=== PATIENT | female | born 1990 | race Caucasian/White ===

== ENCOUNTER 2025-06-29 06:29 | Observation (INO) | payer OTHER ==
[2025-06-10 16:38] LABS: MEAN PLATELET VOLUME 7.6 FL (7.4-10.4); PRE OP HEMATOCRIT 35.2 % (35.0-45.0); PRE OP HEMOGLOBIN 11.7 g/dL (12.0-16.0); PRE OP PLATELET COUNT 226 X10'3 (140-440); PRE OP WHITE BLOOD COUNT 8.3 10'3 (4.8-10.8); RED CELL DISTRIBUTION WIDTH 15.3 % (11.5-14.5)
[2025-06-10 16:50] LABS: HCG SERUM QL NEGATIVE
[2025-06-10 16:52] LABS: CREATININE 0.62 MG/DL (0.40-0.90); PRE OP ALT 18 U/L (30-65); PRE OP ANION GAP 8 (8-16); PRE OP AST 23 U/L (10-37); PRE OP BILIRUB, TOTAL 0.4 MG/DL (0.0-1.0); PRE OP GLUCOSE 87 MG/DL (70-104); PRE OP POTASSIUM 4.2 MMOL/L (3.4-5.1); PRE OP SODIUM 138 MMOL/L (135-145); TOTAL CARBON DIOXIDE 28.3 MMOL/L (24-32); eGFR > 90 ML/MIN
[2025-06-29] VITALS (20 sets, daily range): BP systolic 105–140; BP diastolic 60–103; PULSE 91–106; RESP 13–16; TEMP 97.8–98.4; O2SAT 96–100
[~2025-06-29] VITALS: Ht 175.3 cm; Wt 84.0 kg
[2025-06-29] MEDS: ceFAZolin 2gm/dext,iso 50mL 50 ML IV ONE (05:30)
[~2025-06-29 06:29] MED LIST: SUMA100T16 PO
[2025-06-29] MEDS ORDERED: methylene blue (5mg/ml) 50mg/10ml ampul IV ONE (06:46)
[2025-06-29] MEDS ORDERED: BUPIVACAINE liposomal/PF 13.3 MG/ML 10mL vial IM ONE ×2 (06:46→08:11)
[2025-06-29] MEDS ORDERED: BUPIVAcaine/PF 2.5mg/ml (0.25%) 10ml vial ONE ×2 (06:46→07:12)
[2025-06-29] MEDS: ringers solution, lacted 1,000 ML IV SCH ×3 (06:58→12:00)
[2025-06-29 07:41] LABS: MEAN PLATELET VOLUME 7.6 FL (7.4-10.4); PRE OP HEMATOCRIT 35.6 % (35.0-45.0); PRE OP HEMOGLOBIN 12.0 g/dL (12.0-16.0); PRE OP PLATELET COUNT 227 X10'3 (140-440); PRE OP WHITE BLOOD COUNT 4.7 10'3 (4.8-10.8); RED CELL DISTRIBUTION WIDTH 15.0 % (11.5-14.5)
[2025-06-29 08:03] LABS: CREATININE 0.64 MG/DL (0.40-0.90); PRE OP ALT 19 U/L (30-65); PRE OP ANION GAP 10 (8-16); PRE OP AST 28 U/L (10-37); PRE OP BILIRUB, TOTAL 0.4 MG/DL (0.0-1.0); PRE OP GLUCOSE 102 MG/DL (70-104); PRE OP POTASSIUM 3.6 MMOL/L (3.4-5.1); PRE OP SODIUM 142 MMOL/L (135-145); TOTAL CARBON DIOXIDE 28.6 MMOL/L (24-32); eCRCL 129 ML/MIN; eGFR > 90 ML/MIN
[2025-06-29] MEDS ORDERED: BUPIVAcaine 0.5% inj/PF 30 ML ONE (08:10)
[2025-06-29] MEDS ORDERED: fentaNYL/PF 50MCG/1 ML 2ML syringe ONE ×2 (08:14→08:54)
[2025-06-29] MEDS ORDERED: midazolam 1 mg/ML 2ml injection ONE (08:15)
[2025-06-29] MEDS ORDERED: LIDOcaine 2% (20mg/ml) 5ml vial ONE (08:16)
[2025-06-29] MEDS ORDERED: propofol inj 20 ML IV ONE (08:16)
[2025-06-29] MEDS ORDERED: ondansetron/PF 4mg/2ml inj ONE (08:42)
[2025-06-29] MEDS ORDERED: dexamethasone sod phosphate 4mg/ml inj. ONE (08:42)
[2025-06-29] MEDS ORDERED: acetaminophen 1000 MG/100ml vial IV ONE (08:54)
[2025-06-29] MEDS ORDERED: ketorolac trometh 30MG/ML vial 30 MG/ML VIAL ONE (08:59)
[2025-06-29] MEDS: methylene blue (5mg/ml) 50mg/10ml ampul IV ONE (09:06)
[2025-06-29] MEDS: BUPIVAcaine/PF 2.5mg/ml (0.25%) 10ml vial IJ ONE (09:19)
[2025-06-29] MEDS ORDERED: ondansetron/PF 4mg/2ml inj IV PRN ×2 (09:20→12:00)
[2025-06-29] MEDS ORDERED: fentaNYL/PF 50MCG/1 ML 2ML syringe IV PRN (09:20)
[2025-06-29] MEDS ORDERED: labetalol 20mg/4ml (5mg/ml) syringe IV PRN (09:20)
--- NOTE | 2025-06-29 09:29 | ANESTHESIA RECORDS ---
Nerve Block Providers to CC CC: FIDELINA DUGAN DO ~ Diagnosis: Nerve Block requested by: FIDELINA DUGAN DO Neuraxial/Peripheral Nerve Block requested for Post-operative analgesia by Physician above DIAGNOSIS: Post-operative pain. (Body Area) Shoulder: [ ] Arm: [ ] Hand: [ ] Hip: [ ] Knee: [ ] Ankle: [ ] Foot: [ ] Leg: [ ] Abdomen: [ ] Other: [____Bil Breasts ] Post-operative pain expected to be/is inadequately managed by oral or IV medicines. Regional anesthetic expected to facilitate rehabilitation and/or discharge from facility. Other:[ _] Procedure Performed: Other: Pardeep PEC I,II blocks Time out Done?: Yes Time of Time out: 08:09 Procedure Details: PROCEDURE DETAILS: Risks, benefits and alternatives explained Informed consent obtained, and patient wishes to proceed Conscious sedation with indicated monitors Patient positioned, pertinent anatomy defined, sterile technique used Needle used: [ ] 3 1/8 inch Stimuplex Ultra 22ga [ ] 4 inch Stimuplex Ultra 20ga [ X] 6 inch Stimuplex Ultra 20ga [ ] 6 inch, Quikbloc over the needle catheter set 20ga [ ] 4 inch Quikbloc over the needle catheter set 20ga [ ]Other: [ ] Loss of twitch @ [ ]mA [ X] Single Injection [ ] Catheter Ultrasound Guidance Used: [ X] Yes [ ] No Attempts:[_1,1,1,1 ] Medicines injected: [ ]Clonidine Amt:[ ] [ ]Dexamethasone Amt:[ ] [ ]Ropivacaine Amt:[ ] [ X ]Bupivacaine Amt:[0.5% 30 c.c ] [ ]Lidocaine Amt:[ ] [ X]Exparel 1.33%:[___20 c.c ] [ ]Epinephrine Amt[ ] [ ]Other: [ ] Intermittent aspiration during local anesthetic administration No symptoms of intraneural or intravenous injection Patient tolerated procedure well Comments Both sides of breast ,chest wall examination with ultrasound and identification sub clavian vessels,identification of 2,3,4 rib shadows, Pectoralis major, Minor interphases. Needle is placed near 4th rib and after negative aspiration a mix of Exparel+0.5% bupevacaine on each side 15 c.c. spread is noted, needle is withdrawn in between pectroralis major/minor fascial plane and 10 c.c local mix is injected on each side. spread is noted and ultrasound images captured and documented. LULI ROJAS MD Jun 29, 2025 09:29
[2025-06-29] MEDS: fentaNYL/PF 50MCG/1 ML 2ML syringe IV PRN (11:38)
[2025-06-29] MEDS ORDERED: morphine 4 MG/ML inj SYRINge IV PRN (12:00)
[2025-06-29] MEDS: morphine 4 MG/ML inj SYRINge IV PRN (12:11)
--- NOTE | 2025-06-29 12:26 | OPERATIVE REPORT ---
Operative Report Providers to CC: FIDELINA DUGAN P DO ~ Date of Procedure: Jun 29, 2025 Pre-Operative Diagnosis: Left breast cancer BRCA2 positive Post-Operative Diagnosis SAME as PRE-Op Procedure Performed Bilateral skin sparing mastectomy and left axillary sentinel lymph node biopsy Surgeon: Dr. Fidelina Dugan Major Sales Associate Helen Brown PA-C Anesthesiologist: Davidson Giraldo Type of Anesthesia: General Findings: Three left axillary sentinel lymph nodes Complications None Prosthetics\Implants used: None Estimated Blood Loss: Less than 30 mL Specimen Removed: 1. Right breast skin sparing mastectomy 2. left breast skin sparing mastectomy 3. Left axillary sentinel lymph node 1-1100 count (hot only) 4. Left axillary sentinel lymph node 2-100 count (hot only) 5. Left axillary sentinel lymph node 3- 1699 count (hot and blue) Description of Procedure: Camelia is a 34-year-old female who was diagnosed with left breast invasive ductal carcinoma in his also BRCA two positive. She was seen and evaluated in the office. We discussed the diagnosis left breast cancer and BRCA positive genetic mutation. Based on our conversation and extensive workup. She decided to move forward with skin sparing bilateral mastectomy and left axillary sentinel node biopsy. She will have delayed implant reconstruction at a later date. I explained the surgical procedure to her the risks and benefits and alternatives to surgery and the potential complications. She had the nuclear medicine injection of the left breast yesterday. She presented to the preoperative suite this morning where an IV was administered SCDs to lower extremities and IV antibiotics at the bedside which was administered prior to the cut of surgery. The left shoulder was marked with my initials indicating that I would be performing axillary surgery. She was also evaluated by the anesthesiologist. She was taken to the OR and placed on the table in the supine position with the arms extended. General anesthesia was administered with an LMA. Also bilateral pecs one and two blocks were administered by the anesthesiologist. I scanned the left breast and axilla with the Joe node gamma probe to identify hot spots. They were identified at both sites. 3 mL of methylene blue dye was injected at the 3 o'clock position subareolar massaged for 4 minutes. The markings were made on both breast as proposed markings for the incision. The patient was prepped and draped in a sterile fashion a time-out was performed and agreed upon. I started with the right breast. An elliptical incision was made around the nipple-areolar complex with a 10 blade. I further dissected through the deep dermal layer with the cutting on the cautery. Hemostasis was achieved with Bovie electrocautery. I raised the superior flap with cat claw retractors. I dissected in the subcutaneous plane down to the base of the clavicle down to the chest wall muscle and also medial and laterally. Once the superior flap was created. I dissected the inferior flap in the same fashion. I turned my attention to removing the breast and the fascia off the chest wall. I dissected the breast and fascia off the chest wall in the superior to inferior and medial and lateral directions. Once the breast mound was removed from the cavity was oriented with short stitch superior and long suture lateral. The specimen was placed off the field in formalin. Hemostasis was achieved with Bovie electrocautery the cavity was copiously irrigated. 10 mL of Vistaseal was sprayed in the cavity to assist with hemostasis during surgery and postoperatively. A seven Maltese TINY drain was placed in the right lower outer quadrant. I made a small miguel in the skin with a 15 blade and used a tonsil c lamp to pull it through. It was secured with 3-0 nylon suture. The skin was closed in two layers. I closed the deep dermal layer with 3-0 Vicryl interrupted sutures and INSORB stapling device. The skin was closed with a Stratafix 3-0 Monocryl suture. I turned my attention to the contralateral breast. I made elliptical incision was made around the nipple-areolar complex with a 10 blade in the left breast. I further dissected through the deep dermal layer with the cutting on the cautery. Hemostasis was achieved with Bovie electrocautery. I raised the superior flap with cat claw retractors. I dissected in the subcutaneous plane down to the base of the clavicle down to the chest wall muscle and also medially and laterally. Once the superior flap was c reated, I dissected the inferior flap in the same fashion. I excised the breast and the fascia off the chest wall. I dissected the breast and fascia off the chest wall in the superior to inferior and medial and lateral directions. The breast mound was removed from the cavity was oriented with short stitch superior and long suture lateral. The specimen was placed off the field in formalin. Hemostasis was achieved with Bovie electrocautery the cavity was copiously irrigated. 10 mL of Vistaseal was sprayed in the cavity to assist with hemostasis during surgery and postoperatively. I turned my attention to the left axillary sentinel lymph node biopsy. I scanned the axillary fascia with the gamma probe. A hot signal was detected. I made the incision with the cautery. And dissected into the axillary space. I used a Park retractors for visualization. A hot lymph node was identified and it was stabilized with a tonsil clamp. I excised this lymph node which was hot only with the LigaSure. It was removed off the field and had a count of 1100. The 2nd lymph node was identified deep to that was a smaller lymph node that was also hot only and had a count of 100. It was excised in the same fashion. The 3rd lymph node that was identified which was more laterally was completely excised in the same fashion without any injury to the neurovascular structures. It had a count of 1699. This lymph node was hot and blue. Hemostasis was achieved with Bovie electrocautery the cavity was irrigated in addition to the breast cavity which was irrigated. Both cavities were sprayed with 10 mL of Vistaseal to assist with hemostasis. The axillary fascia was approximated with 3-0 Vicryl interrupted sutures. A seven Maltese TINY drain was placed in the right lower outer quadrant. The skin was punctured with a 15 blade and used a tonsil clamp to pull it through. It was secured with 3-0 nylon suture. The skin was closed in two layers. I closed the deep dermal layer with 3-0 Vicryl interrupted sutures and INSORB stapling device. The skin was closed with a Stratafix 3-0 Monocryl suture. I turned my attention to the contralateral breast. Counts repoted as correct: Yes FIDELINA DUGAN DO Jun 29, 2025 12:26
[2025-06-29] MEDS: HYDROcodone/acetaminophen 5mg/325mg tablet PO PRN (13:30)
[2025-06-29] MEDS: ceFAZolin/D5W- 1GM premix 50 ML IV SCH (17:36)
[2025-06-30 02:00] VITALS: BP 116/79; PULSE 88; RESP 16; TEMP 98.4; O2SAT 99
[2025-06-30 05:00] VITALS: BP 109/72; PULSE 83; RESP 18; TEMP 97.8; O2SAT 100
[2025-06-30 08:19] VITALS: RESP 16; O2SAT 99
--- NOTE | 2025-06-30 09:15 | PROGRESS NOTE ---
Progress Note Dictate Providers to CC CC: FIDELINA DUGAN DO ~ Central Line/PICC still needed: N\A Antibiotic Ordered?: Yes If Yes, Indications: Surgical prophylaxis If Yes, Anticipated Duration: Two postop doses times q.8 hours Subjective Subjective Pain controlled with medication. Patient is tolerating her diet ambulating and using her incentive spirometer Objective Vitals Vital Signs Date Time Temp Pulse Resp B/P (MAP) Pulse Ox O2 Delivery O2 Flow Rate FiO2 06/30/25 08:19 16 99 Room Air 06/30/25 05:00 97.8 83 109/72 (84) 06/29/25 12:20 0.0 Lab Results: 06/29/25 0715 06/29/25 0715 Objective Alert and oriented x3 no acute distress HEENT: Normocephalic atraumatic Chest: Yung wrapped, no visible swelling or drainage. TINY drains are adequate and serosanguineous. Right TINY 50 mL left TINY 40 mL Extremities: Upper extremities without swelling, lower extremities no cyanosis clubbing or edema Counseling Services Smoking & Tobacco Cessation: 3-10 Minutes (We discussed smoking cessation in the office and patient got down to 0 cigarettes in the last two weeks) Problem\Assessment\Plan Problems/Diagnosis: (1) BRCA2 genetic carrier (2) Breast cancer in female Assessment & Plan: Postop day #1. Status post bilateral skin sparing mastectomy and left axillary sentinel lymph node biopsy -left breast cancer stage II -BRCA 2 gene carrier -vital signs were stable and TINY drains are adequate pain is controlled -discharged home today -prior to discharge ambulate, teach drain care -patient has been prescribed antibiotics and pain medication for home -follow up with doctor Dugan for a postoperative appointment in two weeks and Dr. Dugan will call her in to remove the TINY drains once output is adequate -notify doctor Dugan any issues or concerns Problem Qualifiers (1) Breast cancer in female: Qualified Codes: C50.412 - Malignant neoplasm of upper-outer quadrant of left female breast; Z17.0 - Estrogen receptor positive status [ER+] FIDELINA DUGAN DO Jun 30, 2025 09:15
--- NOTE | 2025-06-30 09:20 | DISCHARGE SUMMARY ---
Discharge Summary Providers to CC CC: FIDELINA DUGAN DO ~ Discharge Summary Admission Diagnosis: Left breast cancer BRCA2 positive Hospital Course DATE OF ADMISSION: 06/29/2025 DATE OF DISCHARGE: 06/30/2025 Discharge Diagnosis\Comment: Left breast cancer BRCA two positive Operations\Procedures: bilateral skin sparing mastectomy and left axillary sentinel lymph node biopsy Consultants: None Complications: None Condition on DC: Stable Discharge Summary: Camelia is a 34-year-old female who was diagnosed with left breast cancer and BRCA2 positive. She had consented for surgery. She discussed her options in the office and consented to bilateral in sparing mastectomy and left axillary sentinel lymph node biopsy. She had a nuclear medicine injection the day before in the left side in preparation for the sentinel lymph node biopsy. In the past unit the day of surgery she was seen by myself and the anesthesiologist. She had an IV placed SCDs to lower extremities and antibiotics which were administered prior to the cut of surgery. She had a pecs one and two block in surgery after general anesthesia was administered. The surgery had no complications. Vistaseal was sprayed in the cavity to assist with hemostasis intraoperatively and postoperatively. She had an uneventful course in recovery. She had an uneventful course overnight pain was controlled patient ambulated and tolerated her diet. Postop day 1. She received two prophylactic doses of antibiotics. She has ambulated, used incentive spirometer, pain is controlled with medication. She has adequate TINY drain output which is serosanguineous. She will be discharged home today and follow up in the office as an outpatient. Has been prescribed pain medication and antibiotics. *Problems/Diagnosis: (1) BRCA2 genetic carrier (2) Breast cancer in female Assessment & Plan: Postop day #1. Status post bilateral skin sparing mastectomy and left axillary sentinel lymph node biopsy -left breast cancer stage II -BRCA 2 gene carrier -vital signs were stable and TINY drains are adequate pain is controlled -discharged home today -prior to discharge ambulate, teach drain care -patient has been prescribed antibiotics and pain medication for home -follow up with doctor Dugan for a postoperative appointment in two weeks and Dr. Dugan will call her in to remove the TINY drains once output is adequate -notify doctor Dugan any issues or concerns Total Time Spent on D/C: > 30 Minutes Problem Qualifiers (1) Breast cancer in female: Qualified Codes: C50.412 - Malignant neoplasm of upper-outer quadrant of left female breast; Z17.0 - Estrogen receptor positive status [ER+] FIDELINA DUGAN DO Jun 30, 2025 09:20
--- NOTE | 2025-07-01 12:54 | PATHOLOGY REPORT ---
[facility] [address] [place] [address] SURGICAL PATHOLOGY REPORT CaseNumber: [id number] Surgeon:Valentine Antunez P.A.-C CLINICAL INFORMATION CLINICAL INFORMATION: The patient has not had neoadjuvant chemotherapy. DIAGNOSIS DIAGNOSIS: A.BREAST, RIGHT; MASTECTOMY - BENIGN BREAST, SKIN, AND NIPPLE. DIAGNOSIS: B.BREAST, LEFT; MASTECTOMY - INVASIVE DUCTAL CARCINOMA, JUDD GRADE III. - TUMOR SIZE: 3 CM. - THE SURGICAL MARGINS ARE CLEAR. - BENIGN NIPPLE AND SKIN SECTIONS. - BIOPSY SITE WITH CLIP IDENTIFIED. - SEE SYNOPTIC REPORT. DIAGNOSIS: C.LYMPH NODE, LEFT AXILLARY SENTINEL #1; EXCISION - ONE LYMPH NODE, NEGATIVE FOR CARCINOMA (0). DIAGNOSIS: D.LYMPH NODE, LEFT AXILLARY SENTINEL #2; EXCISION - METASTATIC DUCTAL CARCINOMA INVOLVING ONE LYMPH NODE (09/22). - BIOPSY SITE IDENTIFIED. - TUMOR DEPOSIT MEASURES 18 MM. - NEGATIVE FOR EXTRACAPSULAR EXTENSION. DIAGNOSIS: E.LYMPH NODE, LEFT AXILLARY SENTINEL #3; EXCISION - METASTATIC DUCTAL CARCINOMA INVOLVING ONE LYMPH NODE (09/22). - TUMOR DEPOSIT MEASURES 3 MM. - NEGATIVE FOR EXTRACAPSULAR EXTENSION. COMMENT NOTE: As a part of intradepartmental quality assurance supervisor final, Dr. Chopra has reviewed this case and concurs. NOTE: As a part of intradepartmental quality assurance supervisor final, Dr. Chopra has reviewed this case and concurs. NOTE: As a part of intradepartmental quality assurance supervisor final, Dr. Chopra has reviewed this case and concurs. NOTE: As a part of intradepartmental quality assurance supervisor final, Dr. Chopra has reviewed this case and concurs. NOTE: As a part of intradepartmental quality assurance supervisor final, Dr. Chopra has reviewed this case and concurs. MICROSCOPIC DESCRIPTION A. BREAST, RIGHT MICROSCOPIC DESCRIPTION: 5 H&E-stained slides are examined showing benign skin, nipple, and breast tissue. There are no significant histopathologic changes. B. BREAST, LEFT MICROSCOPIC DESCRIPTION: 9 H&E-stained slides are examined. They show sections of breast involved by invasive ductal carcinoma, Orange grade 3. There is rare acinar and tubule formation, moderate nuclear enlargement, and frequent mitotic activity (up to 19 in 10 high-powered partida, Orange score 3). The invasive carcinoma measures at least 21 x 15 mm on a slide, and involves 4 contiguous sections (this constitutes approximately 16 mm). Within and around the tumor there are multiple foci of intermediate grade, solid and cribriform, ductal carcinoma in situ. The in situ carcinoma shows single cell necrosis. The background breast stroma shows significant desmoplasia. A centrally located biopsy site is present within the tumor. Lymphovascular invasion is present. Microscopically, the invasive carcinoma is 11 mm to the nearest inferior margin, and 10 mm to the nearest superior margin. The nipple and skin show no i nvolvement. C. LYMPH NODE, LEFT AXILLARY SENTINEL #1 MICROSCOPIC DESCRIPTION: 2 H&E-stained slides and 1 AE1/3 cytokeratin immunostain are examined. They show multiple levels and sections of a lymph node. There is no evidence of metastatic carcinoma. D. LYMPH NODE, LEFT AXILLARY SENTINEL #2 MICROSCOPIC DESCRIPTION: 8 H&E-stained slides and 3 AE1/3 cytokeratin immunostains are examined. They show multiple levels and sections of a lymph node involved by metastatic invasive ductal carcinoma. The tumor deposit measures 18 mm in greatest linear extent on a slide. I do not see extracapsular extension. A previous biopsy site and fibrosis, is identified. E. LYMPH NODE, LEFT AXILLARY SENTINEL #3 MICROSCOPIC DESCRIPTION: 2 H&E-stained slides and 1 AE1/3 cytokeratin immunostain are examined. They show multiple levels and sections of a lymph node involved by metastatic invasive ductal carcinoma. The tumor deposit measures 3 mm. No extracapsular extension is identified. GROSS DESCRIPTION A. BREAST, RIGHT GROSS DESCRIPTION: Received in a container of formalin labeled with the patient's name, number, and "R breast skin sparing mastectomy" is a 465 g right mastectomy specimen which measures 15 x 19 x 3.5 cm. There is an overlying ellipse of skin which measures 7.5 x 3.5 cm with a centrally placed nipple and areola complex 3 cm in diameter. There are sutures found marking the superior and lateral aspects. The anterior-superior margin is marked blue, the anterior- inferior margin is marked green, the posterior margin is marked black. Sectioning reveals fat and fibrous tissue (fibrous tissue estimated at 35%). Comedo change is not identified. A discrete mass lesion is not identified. Sections are submitted as follows: A1) Nipple and skinA2) Superior lateral representativeA3) Inferior lateral representativeA4) Inferior medial representativeA5) Superior medial floor representative The time at which the specimen was removed was 924. The time at which the specimen was placed in formalin was 0930. (meb) B. BREAST, LEFT GROSS DESCRIPTION: Received in a container of formalin labeled with the patient's name, number, and "left breast skin sparing mastectomy" is a 479 g left mastectomy specimen which measures 14 x 19 x 3.5 cm. There is an overlying ellipse of skin which measures 6 x 3 cm with a centrally placed nipple and areola complex 3 cm in diameter. The anterior-superior margin is marked blue, the anterior-inferior margin is marked green, the posterior margin is marked black. Sectioning reveals a 1.7 x 2 x 3 cm firm lance neoplasm containing foreign material (two metallic clips) present 0.9 cm from the superior margin and 1 cm from the inferior margin.Sections are submitted as follows:B1) Nipple and skinB2) Tumor with superior marginB3) Tumor with inferior marginB2-B5) Tumor representativeB6) Superior lateral representativeB7) Inferior lateral representativeB8) Inferior medial representativeB9) Superior medial representativeThe time at which the specimen was removed was 0925. The time at which the specimen was placed in formalin was 0930. (meb) C. LYMPH NODE, LEFT AXILLARY SENTINEL #1 GROSS DESCRIPTION: Received in a container of formalin labeled with the patient's name, number, and "left axillary sentinel lymph node #1" is a 0.6 x 0.5 x 0.4 cm blue stained lymph node candidate. The specimen is bisected and entirely submitted as C1. The time at which the specimen was removed was 0925. The time at which the specimen was placed in formalin was 0930. (meb) D. LYMPH NODE, LEFT AXILLARY SENTINEL #2 GROSS DESCRIPTION: Received in a container of formalin labeled with the patient's name, number, and "left axillary sentinel lymph node #2" is a 2.4 x 1.4 x 1.2 cm lymph node candidate. The specimen is trisected and entirely submitted as D1-D3. The time at which the specimen was removed was 0925. The t arun at which the specimen was placed in formalin was 0930. (meb) E. LYMPH NODE, LEFT AXILLARY SENTINEL #3 GROSS DESCRIPTION: Received in a container of formalin labeled with the patient's name, number, and "left axillary sentinel lymph node #3" is a 1.4 x 0.7 x 0.5 cm blue stained lymph node candidate. The specimen is bisected and entirely submitted as E1. The time at which the specimen was removed was 0925. The time at which the specimen was placed in formalin was 0930. (meb) SYNOPTIC REPORT SYNOPTIC TEXT: INVASIVE CARCINOMA OF THE BREAST: Resection Specimen Procedure: Total mastectomy Specimen Laterality: Left Tumor Tumor Site: Not specified Histologic Type: Invasive carcinoma of no special type (ductal) Histologic Grade (Orange Histologic Score): Glandular (Acinar) / Tubular Differentiation: Score 3 Nuclear Pleomorphism: Score 2 Mitotic Rate: Score 3 Overall Grade: Grade 3 (scores of 8 or 9) Tumor Size: 30 x 20 x 1.7 Millimeters (mm, grossly) Tumor Focality: Single focus of invasive carcinoma Ductal Carcinoma In Situ (DCIS): Present - Negative for extensive intraductal component (EIC) Architectural Patterns: Cribriform; Solid, cribriform Nuclear Grade: Grade II (intermediate) Necrosis: Present, focal (small foci or single cell necrosis) Number of Blocks with DCIS: 4 Number of Blocks Examined: 9 Lobular Carcinoma In Situ (LCIS): Not identified Lymphatic and / or Vascular Invasion: Present Microcalcifications: Present in invasive carcinoma; Present in non- neoplastic tissue Treatment Effect in the Breast: No known presurgical therapy Margins Margin Status for Invasive Carcinoma: All margins negative for invasive carcinoma Distance from Invasive Carcinoma to Closest Margin: 9 mm (grossly) Closest Margin(s) to Invasive Carcinoma: Superior Distance from Invasive Carcinoma to Inferior Margin: 10 mm (grossly) Margin Status for DCIS: All margins negative for DCIS Distance from DCIS to Closest Margin: 10 mm Closest Margin(s) to DCIS: Superior Regional Lymph Nodes Regional Lymph Node Status: Tumor present in regional lymph node(s) Number of Lymph Nodes with Macrometastases: 2 Number of Lymph Nodes with Micrometastases: 0 Number of Lymph Nodes with Isolated Tumor Cells: 0 Size of Largest Dedra Metastatic Deposit: 18 mm Extranodal Extension: Not identified Total Number of Lymph Nodes Examined (sentinel and non-sentinel): 3 Number of Vill[place] Nodes Examined: 3 pTNM Classification (AJCC 8th Edition) pT Category: pT2 pN Category: pN1a N Suffix: (sn) [facility] 2023 Q2 Release Electronically signed by: Santy Brennan, 07/01/2025 12:12:00 PM
== END 2025-06-30 10:45 | disposition home or self-care (01) ==
LOC: PAS 06:29 → PAS IN 12:05 → SUR 3N 12:25
PROVIDERS: ADMIT Surgery; ATTEND Surgery
DX: C50.412 Malignant neoplasm of upper-outer quadrant of left female breast (principal); Z14.8 Genetic carrier of other disease; Z79.899 Other long term (current) drug therapy; Z98.890 Other specified postprocedural states; Z15.02 Genetic susceptibility to malignant neoplasm of ovary
CPT/HCPCS: 19303; 36415; 38525; 38900; 80053; 82948; 84703; 85025; 87081; 96365; 96366; 96375; A6258; G0378; J0131; J0666; J0690; J1100; J1885; J2003; J2250; J2270; J2405; J2704; J3010; J3490; J7120; Q9968; A4215; A4618; A6212; A6253; A6446; A6449; A7000; C9250